=== PATIENT | female | born 1940 | race Caucasian/White ===

== ENCOUNTER → 2017-11-19 | Outpatient (CLI) | payer OTHER ==
[~2017-11-19] MED LIST: AMIT150T PO; HYDR25TA PO; LEVO125T5 PO; METF500T4 PO; TRIA1TAB3 PO
--- NOTE | 2017-11-26 08:51 | RAD ---
DATE: 11/19/2017 EXAM: MAMMO KHLOE SCREENING BILATERAL HISTORY: Screening Mammogram COMPARISON: None available at the time of dictation This study was interpreted with the benefit of Computerized Aided Detection (CAD). The breast parenchyma shows scattered fibroglandular densities. Breast parenchyma level B. FINDINGS: Bilateral digital 2-D and 3-D tomosynthesis CC and MLO views. There is a mass in the upper outer right breast, anterior depth. There is a smaller mass in the inferior right breast at approximately 6:00 position, anterior depth. There is a biopsy clip at the 12:00 position right breast. Multiple benign appearing bilateral calcifications. No suspicious mass, calcification or architectural distortion in the left breast. IMPRESSION: Two right breast masses. Diagnostic right breast mammogram to include spot compression views and same day ultrasound, if needed. BI-RADS CATEGORY: 0 INCOMPLETE: NEEDS ADDITIONAL IMAGING EVALUATION AND/OR PRIOR MAMMOGRAMS FOR COMPARISON. RECOMMENDED FOLLOW-UP: ADD ADDITIONAL IMAGING PQRS compliance statement: Patient information was entered into a reminder system with a target due date for the next mammogram. Mammography is a sensitive method for finding small breast cancers, but it does not detect them all and is not a substitute for careful clinical examination. A negative mammogram does not negate a clinically suspicious finding and should not result in delay in biopsying a clinically suspicious abnormality. "Our facility is accredited by the [employer] Mammography Program."
== END | disposition home or self-care (01) ==
LOC: MAMMO 13:45
PROVIDERS: ATTEND Family Medicine
DX: Z12.31 Encounter for screening mammogram for malignant neoplasm of breast (principal); N63.10 Unspecified lump in the right breast, unspecified quadrant
CPT/HCPCS: 77063; 77067

== ENCOUNTER 2018-02-06 11:00 | Inpatient (IN) | payer OTHER ==
[~2018-02-06] VITALS: Ht 152.4 cm; Wt 68.5 kg
[~2018-02-06 11:00] MED LIST changes: -METF500T4 PO; +METF500T5 PO
--- NOTE | 2018-02-06 12:07 | EKG ---
[address] [address] Test Date: 2018-02-06 Test Time: 12:01:38 Pat Name: JACE KERN Department: Room: Gender: F Mri Special Procedures Technologist: TYLER : 1940 Requested By: JEANNE PIERRE Order Number: [id number] Reading MD: Measurements Intervals [place] Rate: 91 P: -142 CT: 230 QRS: -20 QRSD: 170 T: 113 QT: 420 QTc: 519 Interpretive Statements SUPRAVENTRICULAR RHYTHM PROLONGED CT INTERVAL LEFT ATRIAL ABNORMALITY LEFTWARD AXIS NON SPECIFIC INTRAVENTRICULAR BLOCK ABNORMAL ECG RI6.01 Compared to ECG 11/19/2017 17:13:56 Supraventricular rhythm now present Atrial abnormality now present Sinus rhythm no longer present ST (T wave) deviation no longer present Prolonged QT interval no longer present
--- NOTE | 2018-02-06 12:19 | PHYS DOC ---
Past History Past Medical History: Cancer, Diabetes, Other Additional Past Medical Histor: benign renal tumor Past Surgical History: Other Additional Past Surgical Histo: acoustic neuroma removal Smoking: Non-smoker Alcohol Use: Occasionally Drug Use: None Adult General Chief Complaint Chief Complaint: MECHANICAL FALL HPI HPI Patient is a 77-year-old white female, who is a retired teacher, who presents to the emergency department with 2 friends. She splits her time between [place]/ [place], and this area, when she is here she usually resides with friends. The patient's friends state that the patient has had a gradual decline in cognitive status and increasing confusion over the past several months. The patient's phone, who is on his way here from [place] and whom I spoke with by phone, confirms the above history. The patient did fall twice today and has some minor bruising on her face, but denies any pain or any recent injuries. She is oriented to person and place but disoriented to time. She denies any headache, or vision changes. She has not had any chest pain shortness of breath. She has not had any urinary symptoms. There are no alleviating, or exacerbating factors to her symptoms. The patient does have a local physician, Dr. Schwarz. Review of Systems Review of Systems Constitutional: Denies fever or chills [] Eyes: Denies change in visual acuity, redness, or eye pain [] HENT: Denies nasal congestion or sore throat [] Respiratory: Denies cough or shortness of breath [] Cardiovascular: The patient denies any shortness of breath, chest pain, palpitations, or orthopnea[] GI: Denies abdominal pain, nausea, vomiting, bloody stools or diarrhea [] : Denies dysuria or hematuria [] Musculoskeletal: Denies back pain or joint pain [] Integument: Denies rash or skin lesions [] Neurologic: Denies headache, focal weakness or sensory changes. Has had increasing confusion and falls. [] Endocrine: Denies polyuria or polydipsia [] All other systems were reviewed and found to be within normal limits, except as documented in this note. Allergies Allergies Allergies Coded Allergies Type Severity Reaction Last Updated Verified No Known Drug Allergies 11/23/16 No Physical Exam Physical Exam PHYSICAL EXAM: CONSTITUTIONAL: Well developed, well nourished HEAD: normocephalic, atraumatic EENT: PERRL, EOMI. Conjunctivae normal color, sclerae non-icteric; dry mucous membranes. NECK: Supple, non-tender; no meningismus. LUNGS: Lungs CTA, breathing even and unlabored. Normal air movement. HEART: Regular rate and rhythm, no murmur CHEST: No deformity; non-tender ABDOMEN: The abdomen is soft, and non-tender, no masses or bruits. EXTREM: Normal ROM; no deformity, no calf tenderness. Normal pulses palpable in all extremities. There is no pedal edema. SKIN: No rash; no diaphoresis NEURO: Alert; normal speech . Impaired cognition suggestive of aerx-fm-dlgleaet dementia, CN's grossly intact; strength grossly intact without focal deficit. BACK: No CVA TTP. Current Patient Data Vital Signs Vital Signs Date Time Temp Pulse Resp B/P (MAP) Pulse Ox O2 Delivery O2 Flow Rate FiO2 02/06/18 11:32 98.2 113 22 96 Room Air EKG EKG [Probable normal sinus rhythm at a rate of 91 bpm, left axis deviation, left bundle branch block, with secondary repolarization abnormality without any other acute ischemic ST/T changes.] Radiology/Procedures Radiology/Procedures PROCEDURE: CHEST PA & LATERAL CHEST PA LATERAL, CT HEAD without CONTRAST Clinical indications: SHORT OF BREATH. Dizziness. Weakness. Falling. History of acoustic neuroma. NONCONTRAST HEAD CT COMPARISON: November 19, 2017. Technique: Noncontrast axial cross sectional scanning of the head was performed. PQRS compliance Statement One or more of the following individualized dose reduction techniques were utilized for this study: 1. Automated exposure control 2. Adjustment of the mA and/or kV according to patient size 3. Use of iterative reconstruction technique Findings: A right mastoidectomy is evident with a cochlear implant in place. There is metallic artifact as a result which does obscure portions of the right cerebral hemisphere periphery. There is a small left frontal meningioma which is unchanged. It measures 12 mm. No acute intracranial hemorrhage or midline shift or mass-effect or hydrocephalus or extra-axial fluid collection is seen. No new focal hypodense area or sulci effacement is seen to indicate an acute infarct or edema radiographically. No skull fracture or pneumocephalus is seen. Impression: No new intracranial abnormality is seen. CHEST PA LATERAL, COMPARISON: November 19, 2017. Findings: Calcified granuloma of the left lung base is again noted. No acute lung infiltrate or pleural effusion or pulmonary edema or lung mass or pneumothorax is seen. The heart size, pulmonary vasculature, mediastinum and both scott are unremarkable. The osseous structures appear intact. Impression: No acute radiographic abnormality is seen. Course & Med Decision Making Course & Med Decision Making Pertinent Labs and Imaging studies reviewed. (See chart for details) [] the patient's condition remained stable. Spoke with the patient's PCP, who will admit the patient for further evaluation and treatment. Her renal function is normal at baseline, her creatinine today of 2.0 is new for her. Her hemoglobin is slightly lower than the 10-11 that it has been in the past. Dragon Disclaimer Dragon Disclaimer This electronic medical record was generated, in whole or in part, using a voice recognition dictation system. Departure Departure: Impression: Primary Impression: Acute renal failure Additional Impressions: Dehydration Altered mental status Disposition: ADMITTED INPATIENT Admitting Physician: Rafael Davis Condition: STABLE Referrals: RAFAEL DAVIS MD (PCP) Problem Qualifiers JEANNE PIERRE MD February 06, 2018 12:19
[2018-02-06 12:28] LABS: BASO % 1 % (0-3); EOS # 0.1 x10^3/uL (0.0-0.7); EOS % 3 % (0-3); HEMATOCRIT 27.6 % (36.0-47.0); HEMOGLOBIN 8.8 g/dL (12.0-15.5); LYMPH # 1.2 x10^3/uL (1.0-4.8); LYMPH % 26 % (24-48); MEAN CORPUSCULAR HEMOGLOBIN 22 pg (25-35); MEAN CORPUSCULAR HGB CONC 32 g/dL (31-37); MEAN CORPUSCULAR VOLUME 70 fL (79-100); MONO # 0.4 x10^3/uL (0.0-1.1); MONO % 9 % (0-9); NEUT # 2.8 x10^3uL (1.8-7.7); NEUT % 61 % (31-73); PLATELET COUNT 217 x10^3/uL (140-400); RED BLOOD COUNT 3.97 x10^6/uL (3.50-5.40); RED CELL DISTRIBUTION WIDTH 17.5 % (11.5-14.5); WHITE BLOOD COUNT 4.5 x10^3/uL (4.0-11.0)
[2018-02-06 12:48] LABS: ALBUMIN 3.2 g/dL (3.4-5.0); ALBUMIN/GLOBULIN RATIO 0.8 (1.0-1.7); CALCIUM 8.8 mg/dL (8.5-10.1); GFR 24.2; MAGNESIUM 1.8 mg/dL (1.8-2.4); POTASSIUM 4.1 mmol/L (3.5-5.1); TOTAL BILIRUBIN 0.4 mg/dL (0.2-1.0); TOTAL PROTEIN 7.2 g/dL (6.4-8.2)
--- NOTE | 2018-02-06 12:50 | RAD ---
CHEST PA LATERAL, CT HEAD without CONTRAST Clinical indications: SHORT OF BREATH. Dizziness. Weakness. Falling. History of acoustic neuroma. NONCONTRAST HEAD CT COMPARISON: November 19, 2017. Technique: Noncontrast axial cross sectional scanning of the head was performed. RS compliance Statement One or more of the following individualized dose reduction techniques were utilized for this study: 1. Automated exposure control 2. Adjustment of the mA and/or kV according to patient size 3. Use of iterative reconstruction technique Findings: A right mastoidectomy is evident with a cochlear implant in place. There is metallic artifact as a result which does obscure portions of the right cerebral hemisphere periphery. There is a small left frontal meningioma which is unchanged. It measures 12 mm. No acute intracranial hemorrhage or midline shift or mass-effect or hydrocephalus or extra-axial fluid collection is seen. No new focal hypodense area or sulci effacement is seen to indicate an acute infarct or edema radiographically. No skull fracture or pneumocephalus is seen. Impression: No new intracranial abnormality is seen. CHEST PA LATERAL, COMPARISON: November 19, 2017. Findings: Calcified granuloma of the left lung base is again noted. No acute lung infiltrate or pleural effusion or pulmonary edema or lung mass or pneumothorax is seen. The heart size, pulmonary vasculature, mediastinum and both scott are unremarkable. The osseous structures appear intact. Impression: No acute radiographic abnormality is seen. Electronically signed by: Jarret Medina MD (02/06/2018 12:46 PM) [id number]
[2018-02-06 13:14] LABS: BACTERIA,URINE FEW /HPF (0-FEW); BILIRUBIN,URINE NEG (NEG); CLARITY,URINE CLOUDY; COLOR,URINE AMBER; GLUCOSE,URINE NEG (NEG); NITRITE,URINE NEG (NEG); RBC,URINE 0 /HPF (0-2); SQUAMOUS EPITHELIAL CELL,UR FEW /LPF; UROBILINOGEN,URINE 0.2 mg/dL (0.2 mg/dL)
[2018-02-06] MEDS ORDERED: IV NORMAL SALINE 1,000ML 1,000 ML IV ONE ×2 (13:15)
[2018-02-06 13:18] LABS: BARBITURATES NEG (NEG); BENZODIAZEPINES NEG (NEG); CANNABINOIDS NEG (NEG); COCAINE NEG (NEG); METHADONE NEG (NEG); OPIATES NEG (NEG); PHENCYCLIDINE NEG (NEG)
[2018-02-06 13:19] LABS: AMPHETAMINE/METHAMPHETAMINE NEG (NEG)
[2018-02-06 13:21] LABS: PLT ESTIMATE ADEQUATE (ADEQUATE)
[2018-02-06 13:22] LABS: HYPOCHROMIA SLIGHT; MICROCYTOSIS MOD; POLYCHROMASIA SLIGHT
[2018-02-06 13:23] LABS: ANISOCYTOSIS SLIGHT
[2018-02-06 13:24] LABS: OVALOCYTES OCC
[2018-02-06] MEDS ORDERED: POTASSIUM CL 20MEQ D5-0.2%NACL 1,000 ML IV ONE (13:30)
[2018-02-06 16:55] VITALS: BP 121/76
[2018-02-06 16:56] VITALS: BP 110/76
[2018-02-06 16:57] VITALS: BP 103/70
[2018-02-06] MEDS ORDERED: SULF-143 PO (17:05)
[2018-02-06] MEDS ORDERED: BUDE10.2 IH (17:05)
[2018-02-06] MEDS ORDERED: GLIP5TAB10 PO (17:05)
[2018-02-06] MEDS ORDERED: CODE1CAP24 PO (17:05)
[2018-02-06] MEDS ORDERED: INSU100I17 SQ (17:12)
[2018-02-06] MEDS ORDERED: DEXTROSE 50% 25 GM / 50ML DISP.SYRIN. IV PRN (18:15)
[2018-02-06] MEDS ORDERED: LIDOCAINE (700MG/PATCH) PATCH. TD SCH ×2 (18:30→21:00)
--- NOTE | 2018-02-06 18:35 | HP ---
ADMIT DATE: 02/06/2018 HISTORY OF PRESENT ILLNESS: The patient is a 77-year-old female came in through the Emergency Room. Retired teacher. The patient notes that she has been becoming more confused. The patient has been spending her time in [place] in [facility]. The patient's decline in cognitive status, increased confusion over the past several months. The patient fell twice today and has some minor bruising to the face, but denies any pain or recent injury. She is oriented to person and place, but disoriented, otherwise. She denies any chest pain, shortness of breath or urinary symptoms. The patient was admitted for further evaluation of acute on top of chronic change in mental status. The patient has no known allergies. REVIEW OF SYSTEMS: Basically, she denies most everything. She has poor mentation. She has had previous concussions to the head as well. MEDICATIONS: Include trimethoprim, sulfa, Fioricet, Elavil 150 mg at bedtime, hydroxyzine 25 mg, budesonide, metformin, glipizide 5 mg, levothyroxine 1 tablet daily. ALLERGIES: No known drug allergies. FAMILY HISTORY: Unremarkable. SOCIAL HISTORY: No smoking, alcohol or drug use. Full code. PHYSICAL EXAMINATION: GENERAL: White female in moderate amount of distress, looking fairly uncomfortable. VITAL SIGNS: Blood pressure 125/50, respiratory 20, pulse 85, afebrile, oxygen saturation good. HEENT: Atraumatic, normocephalic. Eyes: PERRLA without jaundice. Mouth and throat were normal. NECK: Supple, without JVD, carotid bruits. No thyromegaly. LUNGS: Diminished, but clear. CARDIOVASCULAR: Regular sinus rhythm, S1, S2, without murmur, rub, thrill, or extra heart sounds. ABDOMEN: Soft, nontender, no rebound or guarding. Positive bowel sounds, no hepatosplenomegaly noted. EXTREMITIES: No clubbing, cyanosis, or edema. NEUROLOGIC: The patient is alert, but unable to give much in the way of short-term memory, carry on a conversation. LABORATORY DATA: Creatinine is elevated. IMPRESSION: Chronic kidney disease. Blood sugar 239, moderate protein malnutrition, change in mental status, syncopal spells as well as mild concussion, and mild dementia. PLAN: Continue workup as such. MILAN KAPLAN MD DR: Ancelmo JOB#: [id number] / [id number]
[2018-02-06 19:00] VITALS: BP 114/70
[2018-02-06] MEDS: ALBUTEROL SULFATE 2.5 MG/3 ML NEBU. NEB SCH (20:21)
[2018-02-06] MEDS: BUDESONIDE 0.5 MG/2 ML NEBU NEB SCH (20:21)
[2018-02-06] MEDS: ACETAMINOPHEN 325 MG TABLET PO PRN (20:36)
[2018-02-06] MEDS: AMITRIPTYLINE HCL 75 MG TABLET PO SCH (20:36)
[2018-02-06] MEDS ORDERED: AMITRIPTYLINE HCL 75 MG TABLET PO SCH (21:00)
[2018-02-06] MEDS ORDERED: NON FORMULARY ITEM (Budesonide/Formoterol Fumarate (Symbicort 160-4.5 Mcg Inhaler) 2 PUFF) IH SCH (21:00)
[2018-02-06 23:29] VITALS: BP 111/60
[2018-02-07 05:50] VITALS: BP 125/72
[2018-02-07 06:01] LABS: BASO % 1 % (0-3); EOS # 0.2 x10^3/uL (0.0-0.7); EOS % 5 % (0-3); HEMATOCRIT 24.7 % (36.0-47.0); HEMOGLOBIN 7.9 g/dL (12.0-15.5); LYMPH # 1.5 x10^3/uL (1.0-4.8); LYMPH % 41 % (24-48); MEAN CORPUSCULAR HEMOGLOBIN 22 pg (25-35); MEAN CORPUSCULAR HGB CONC 32 g/dL (31-37); MEAN CORPUSCULAR VOLUME 69 fL (79-100); MONO # 0.4 x10^3/uL (0.0-1.1); MONO % 10 % (0-9); NEUT # 1.7 x10^3uL (1.8-7.7); NEUT % 44 % (31-73); PLATELET COUNT 174 x10^3/uL (140-400); RED BLOOD COUNT 3.58 x10^6/uL (3.50-5.40); WHITE BLOOD COUNT 3.8 x10^3/uL (4.0-11.0)
[2018-02-07 06:09] LABS: CALCIUM 8.4 mg/dL (8.5-10.1); CREATININE 1.1 mg/dL (0.6-1.0); GFR 48.3; POTASSIUM 3.8 mmol/L (3.5-5.1)
[2018-02-07] MEDS: ALBUTEROL SULFATE 2.5 MG/3 ML NEBU. NEB SCH ×4 (06:17→20:14)
[2018-02-07] MEDS: LEVOTHYROXINE 125 MCG TABLET PO SCH (06:23)
[2018-02-07] MEDS ORDERED: INSULIN LISPRO 300 UNITS/3 ML INSULN.PEN. SQ SCH (07:30)
[2018-02-07] MEDS ORDERED: INSULIN ASPART 300 UNITS/3 ML INSULN.PEN SQ SCH (07:30)
[2018-02-07] MEDS ORDERED: PATCH REMOVAL. MC SCH (09:00)
[2018-02-07] MEDS: glipiZIDE 5 MG TABLET PO SCH (09:56)
[2018-02-07] MEDS: metFORMIN 500 MG TABLET PO SCH ×2 (09:56→17:52)
[2018-02-07] MEDS: INSULIN ASPART 300 UNITS/3 ML INSULN.PEN SQ SCH ×3 (10:31→17:54)
[2018-02-07 11:00] VITALS: BP 111/72
[2018-02-07] MEDS: BUDESONIDE 0.5 MG/2 ML NEBU NEB SCH ×2 (11:17→20:14)
[2018-02-07] MEDS: ACETAMINOPHEN 325 MG TABLET PO PRN ×2 (13:44→20:00)
[2018-02-07 15:00] VITALS: BP 101/68
[2018-02-07 19:33] VITALS: BP 112/66
[2018-02-07] MEDS: LIDOCAINE (700MG/PATCH) PATCH. TD SCH (20:00)
[2018-02-07] MEDS: AMITRIPTYLINE HCL 75 MG TABLET PO SCH (20:00)
[2018-02-07 22:46] VITALS: BP 93/55
[2018-02-08 01:08] LABS: HEMOGLOBIN A1C 8.7 % (4.8-5.6)
[2018-02-08] MEDS: ACETAMINOPHEN 325 MG TABLET PO PRN ×2 (01:29→06:32)
[2018-02-08] MEDS: LEVOTHYROXINE 125 MCG TABLET PO SCH (05:26)
[2018-02-08] MEDS: ALBUTEROL SULFATE 2.5 MG/3 ML NEBU. NEB SCH ×4 (05:28→21:08)
[2018-02-08 05:46] LABS: BASO % 1 % (0-3); EOS # 0.1 x10^3/uL (0.0-0.7); EOS % 4 % (0-3); HEMATOCRIT 26.6 % (36.0-47.0); HEMOGLOBIN 8.5 g/dL (12.0-15.5); LYMPH # 1.6 x10^3/uL (1.0-4.8); LYMPH % 39 % (24-48); MEAN CORPUSCULAR HEMOGLOBIN 22 pg (25-35); MEAN CORPUSCULAR HGB CONC 32 g/dL (31-37); MEAN CORPUSCULAR VOLUME 69 fL (79-100); MONO # 0.4 x10^3/uL (0.0-1.1); MONO % 11 % (0-9); NEUT # 1.9 x10^3uL (1.8-7.7); NEUT % 46 % (31-73); PLATELET COUNT 179 x10^3/uL (140-400); RED BLOOD COUNT 3.87 x10^6/uL (3.50-5.40); RED CELL DISTRIBUTION WIDTH 17.1 % (11.5-14.5); WHITE BLOOD COUNT 4.1 x10^3/uL (4.0-11.0)
[2018-02-08 05:50] VITALS: BP 137/67
[2018-02-08 05:54] LABS: CALCIUM 8.6 mg/dL (8.5-10.1); CREATININE 0.9 mg/dL (0.6-1.0); GFR 60.9; POTASSIUM 3.9 mmol/L (3.5-5.1)
[2018-02-08 06:09] LABS: FECAL OB PT POSITIVE (NEG)
[2018-02-08] MEDS: metFORMIN 500 MG TABLET PO SCH ×2 (08:30→17:16)
[2018-02-08] MEDS: glipiZIDE 5 MG TABLET PO SCH (08:30)
[2018-02-08] MEDS: INSULIN ASPART 300 UNITS/3 ML INSULN.PEN SQ SCH ×3 (08:32→17:18)
[2018-02-08] MEDS: PATCH REMOVAL. MC SCH (09:00)
[2018-02-08 11:00] VITALS: BP 95/62
[2018-02-08] MEDS: BUDESONIDE 0.5 MG/2 ML NEBU NEB SCH ×2 (11:24→21:08)
[2018-02-08] MEDS: buPROPion SR 150 MG TABLET.SA PO SCH (12:31)
[2018-02-08 15:45] VITALS: BP 108/56
[2018-02-08 19:15] VITALS: BP 114/73
--- NOTE | 2018-02-08 19:56 | PDOC ---
Exam Note: [place]ney Note: Please also refer to the separate dictated note~for this date of service dictated separately.~Patient seen individually. Discussed the patient with Nursing staff reviewed the chart.~Reviewed interim history and current functioning. Reviewed vital signs,~Labs/ Radiology~and current medications noted below. Continue current treatment with the changes noted in the dictated addendum note. This is a late entry for February 07, 2018 Assessment: Vital Signs: VS - Last 72 Hours, by Label Date Time Temp Pulse Resp B/P (MAP) Pulse Ox O2 Delivery O2 Flow Rate FiO2 02/08/18 16:32 96 Room Air 02/08/18 15:45 98.3 93 18 108/56 (73) 93 Room Air 02/08/18 11:31 96 Room Air 02/08/18 11:26 96 Room Air 02/08/18 11:00 98.3 97 95/62 (73) 99 02/08/18 08:00 Room Air 02/08/18 05:50 97.8 90 18 137/67 (90) 97 Room Air 02/08/18 05:30 96 Room Air 02/07/18 22:46 57 16 93/55 (68) 96 Room Air 02/07/18 20:23 Room Air 02/07/18 20:18 Room Air 02/07/18 20:15 98 Room Air 02/07/18 19:33 98.5 108 16 112/66 (81) 97 Room Air 02/07/18 16:25 96 Room Air 02/07/18 15:00 98.5 96 101/68 (79) 89 Room Air 02/07/18 11:27 97 Room Air 02/07/18 11:19 97 Room Air 02/07/18 11:00 98.5 63 111/72 (85) 97 02/07/18 08:00 Room Air 02/07/18 06:19 96 Room Air 02/07/18 05:50 98.1 86 14 125/72 (89) 91 Room Air 02/06/18 23:29 98.4 90 20 111/60 (77) 95 Room Air 02/06/18 20:28 Room Air 02/06/18 20:25 96 Room Air 02/06/18 20:15 Room Air 02/06/18 19:00 98.0 56 18 114/70 (85) 92 Room Air 02/06/18 17:23 Room Air 02/06/18 16:57 93 103/70 (81) 02/06/18 16:56 94 110/76 (87) 02/06/18 16:55 91 121/76 (91) 02/06/18 16:54 97.7 18 97 Room Air 02/06/18 15:47 85 20 125/53 (77) 96 Room Air 02/06/18 11:32 98.2 113 22 96 Room Air Vital Signs Date Time Temp Pulse Resp B/P (MAP) Pulse Ox O2 Delivery O2 Flow Rate FiO2 02/08/18 16:32 96 Room Air 02/08/18 15:45 98.3 93 18 108/56 (73) I&O Intake and Output 02/08/18 07:00 Intake Total 570 ml Output Total 1400 ml Balance -830 ml Intake Oral 570 ml Output Urine Total 1400 ml Labs: Laboratory Tests Test 02/08/18 05:20 02/08/18 05:30 02/08/18 07:33 02/08/18 12:08 White Blood Count 4.1 x10^3/uL (4.0-11.0) Red Blood Count 3.87 x10^6/uL (3.50-5.40) Hemoglobin 8.5 g/dL (12.0-15.5) L Hematocrit 26.6 % (36.0-47.0) L Mean Corpuscular Volume 69 fL (79-100) L Mean Corpuscular Hemoglobin 22 pg (25-35) L Mean Corpuscular Hemoglobin Concent 32 g/dL (31-37) Red Cell Distribution Width 17.1 % (11.5-14.5) H Platelet Count 179 x10^3/uL (140-400) Neutrophils (%) (Auto) 46 % (31-73) Lymphocytes (%) (Auto) 39 % (24-48) Monocytes (%) (Auto) 11 % (0-9) H Eosinophils (%) (Auto) 4 % (0-3) H Basophils (%) (Auto) 1 % (0-3) Neutrophils # (Auto) 1.9 x10^3uL (1.8-7.7) Lymphocytes # (Auto) 1.6 x10^3/uL (1.0-4.8) Monocytes # (Auto) 0.4 x10^3/uL (0.0-1.1) Eosinophils # (Auto) 0.1 x10^3/uL (0.0-0.7) Basophils # (Auto) 0.0 x10^3/uL (0.0-0.2) Sodium Level 137 mmol/L (136-145) Potassium Level 3.9 mmol/L (3.5-5.1) Chloride Level 99 mmol/L (98-107) Carbon Dioxide Level 25 mmol/L (21-32) Anion Gap 13 (6-14) Blood Urea Nitrogen 15 mg/dL (7-20) Creatinine 0.9 mg/dL (0.6-1.0) Estimated GFR (Cockcroft-Gault) 60.9 Glucose Level 178 mg/dL (70-99) H Calcium Level 8.6 mg/dL (8.5-10.1) Stool Occult Blood Positive (NEG) Glucose (Fingerstick) 174 mg/dL (70-99) H 178 mg/dL (70-99) H Test 02/08/18 16:48 Glucose (Fingerstick) 150 mg/dL (70-99) H Current Medications: Meds: Current Medications Sodium Chloride 1,000 ml @ 125 mls/hr 1X ONCE IV Last administered on at 13:31; Start 02/06/18 at 13:15; Stop 02/06/18 at 21:14; Status DC Sodium Chloride 1,000 ml @ 1,000 mls/hr 1X ONCE IV ; Start 02/06/18 at 13:15; Stop 02/06/18 at 14:14; Status DC Potassium Chloride/Dextrose/ Sod Cl 1,000 ml @ 125 mls/hr 1X ONCE IV Last administered on 02/06/18at 14:28; Start 02/06/18 at 13:30; Stop 02/06/18 at 21:29 ; Status DC Insulin Aspart (NovoLOG) 10 units TIDAC SQ ; Start 02/07/18 at 07:30; Stop 02/07 at 08:56; Status DC Non-Formulary Medication (Budesonide/ Formoterol Fumarate (Symbicort 160-4.5 Mcg Inhaler)) 2 puff BID IH ; Start 02/06/18 at 21:00; Stop 02/06/18 at 21:00; Status DC Glipizide (Glucotrol) 5 mg DAILY PO Last administered on 02/08/18at 08:30; Start 02/07/18 at 09:00 Levothyroxine Sodium (Synthroid) 125 mcg DAILY07 PO Last administered on at 05:26; Start 02/07/18 at 07:00; Stop 02/08/18 at 10:30; Status DC Metformin HCl (Glucophage) 1,000 mg BIDWMEALS PO Last administered on at 17:16; Start 02/07/18 at 08:00 Amitriptyline HCl (Elavil) 75 mg QHS PO ; Start 02/06/18 at 21:00; Status UNV Acetaminophen (Tylenol) 650 mg PRN Q6HRS PRN PO PAIN / TEMP Last administered on 02/08/18at 06:32; Start 02/06/18 at 18:15 Dextrose 12.5 gm PRN Q15MIN PRN IV SEE COMMENTS; Start 02/06/18 at 18:15 Lidocaine (Lidoderm) 1 patch DAILY TD ; Start 02/06/18 at 18:30; Stop 02/06/18 at 19:26; Status DC Miscellaneous (Lidoderm Patch Removal) 1 ea QHS MC Last administered on at 09:00; Start 02/07/18 at 09:00; Stop 02/07/18 at 13:23; Status DC Albuterol Sulfate (Ventolin) 2.5 mg RTQID NEB Last administered on 02/08/18at 16 :31; Start 02/06/18 at 20:00 Budesonide (Pulmicort) 0.5 mg RTBID NEB Last administered on 02/08/18at 11:24; Start 02/06/18 at 20:00 Lidocaine (Lidoderm) 1 patch DAILY TD Last administered on 02/06/18at 20:36; Start 02/06/18 at 21:00; Stop 02/07/18 at 13:22; Status DC Amitriptyline HCl (Elavil) 75 mg QHS PO Last administered on 02/07/18at 20:00; Start 02/06/18 at 21:00 Insulin Human Lispro (HumaLOG) 10 units TIDAC SQ ; Start 02/07/18 at 07:30; Status Cancel Insulin Aspart (NovoLOG) 10 units TIDAC SQ Last administered on 02/08/18at 17:18 ; Start 02/07/18 at 07:30 Lidocaine (Lidoderm) 1 patch QHS TD Last administered on 02/07/18at 20:00; Start 02/07/18 at 21:00 Miscellaneous (Lidoderm Patch Removal) 1 ea DAILY MC Last administered on at 09:00; Start 02/08/18 at 09:00 Levothyroxine Sodium (Synthroid) 175 mcg DAILY07 PO ; Start 02/09/18 at 07:00 Ferrous Sulfate (Feosol) 325 mg DAILYWBKFT PO ; Start 02/09/18 at 08:00 Bupropion HCl (Wellbutrin Sr) 150 mg DAILY PO Last administered on 02/08/18at 12 :31; Start 02/08/18 at 10:30 Active Scripts Active Metformin Hcl 500 Mg Tablet 1,000 Mg PO BIDWMEALS 30 Days LAST DOSE GIVEN: DATE: TIME: NEXT DOSE DUE: DATE: TIME: Reported Novolog Flexpen (Insulin Aspart) 100 Unit/1 Ml Insuln.pen 10 Unit SQ TIDAC Sse-Fopuhx-Elgb-Cod #3 Capsule (Codeine/Butalbital/Asa/Caffein) 1 Each Capsule 1 Each PO PRN PRN Symbicort 160-4.5 Mcg Inhaler (Budesonide/Formoterol Fumarate) 10.2 Gm Hfa.aer.ad 2 Puff IH BID Glipizide 5 Mg Tablet 1 Tab PO DAILY Levothyroxine Sodium 125 Mcg Tablet 1 Tab PO DAILY LAST DOSE GIVEN: DATE: TODAY TIME: BEFORE BREAKFAST NEXT DOSE DUE: DATE: TOMORROW TIME: BEFORE BREAKFAST Hydroxyzine Hcl 25 Mg Tablet 25 Mg PO QID LAST DOSE GIVEN: DATE: TODAY TIME: 1:30 NEXT DOSE DUE: DATE: TODAY TIME: 6 PM Amitriptyline Hcl 150 Mg Tablet 1 Tab PO QHS LAST DOSE GIVEN: DATE: YESTERDAY TIME: AT BEDTIME NEXT DOSE DUE: DATE: TODAY TIME: AT BEDTIME I have reviewed the current psychotropics carefully including drug interactions. Risk benefit ratio favors no change other than as noted in my dictated progress note. Diagnosis: Problems: (1) Anxiety disorder (2) Mild cognitive disorder (3) Altered mental status MAURO LIVE MD February 08, 2018 19:56
--- NOTE | 2018-02-08 20:06 | PDOC ---
Exam Note: [place]ney Note: Please also refer to the separate dictated note~for this date of service dictated separately.~Patient seen individually. Discussed the patient with Nursing staff reviewed the chart.~Reviewed interim history and current functioning. Reviewed vital signs,~Labs/ Radiology~and current medications noted below. Continue current treatment with the changes noted in the dictated addendum note Assessment: Vital Signs: Vital Signs Date Time Temp Pulse Resp B/P (MAP) Pulse Ox O2 Delivery O2 Flow Rate FiO2 02/08/18 16:32 96 Room Air 02/08/18 15:45 98.3 93 18 108/56 (73) I&O Intake and Output 02/08/18 07:00 Intake Total 570 ml Output Total 1400 ml Balance -830 ml Intake Oral 570 ml Output Urine Total 1400 ml Labs: Laboratory Tests Test 02/08/18 05:20 02/08/18 05:30 02/08/18 07:33 02/08/18 12:08 White Blood Count 4.1 x10^3/uL (4.0-11.0) Red Blood Count 3.87 x10^6/uL (3.50-5.40) Hemoglobin 8.5 g/dL (12.0-15.5) L Hematocrit 26.6 % (36.0-47.0) L Mean Corpuscular Volume 69 fL (79-100) L Mean Corpuscular Hemoglobin 22 pg (25-35) L Mean Corpuscular Hemoglobin Concent 32 g/dL (31-37) Red Cell Distribution Width 17.1 % (11.5-14.5) H Platelet Count 179 x10^3/uL (140-400) Neutrophils (%) (Auto) 46 % (31-73) Lymphocytes (%) (Auto) 39 % (24-48) Monocytes (%) (Auto) 11 % (0-9) H Eosinophils (%) (Auto) 4 % (0-3) H Basophils (%) (Auto) 1 % (0-3) Neutrophils # (Auto) 1.9 x10^3uL (1.8-7.7) Lymphocytes # (Auto) 1.6 x10^3/uL (1.0-4.8) Monocytes # (Auto) 0.4 x10^3/uL (0.0-1.1) Eosinophils # (Auto) 0.1 x10^3/uL (0.0-0.7) Basophils # (Auto) 0.0 x10^3/uL (0.0-0.2) Sodium Level 137 mmol/L (136-145) Potassium Level 3.9 mmol/L (3.5-5.1) Chloride Level 99 mmol/L (98-107) Carbon Dioxide Level 25 mmol/L (21-32) Anion Gap 13 (6-14) Blood Urea Nitrogen 15 mg/dL (7-20) Creatinine 0.9 mg/dL (0.6-1.0) Estimated GFR (Cockcroft-Gault) 60.9 Glucose Level 178 mg/dL (70-99) H Calcium Level 8.6 mg/dL (8.5-10.1) Stool Occult Blood Positive (NEG) Glucose (Fingerstick) 174 mg/dL (70-99) H 178 mg/dL (70-99) H Test 02/08/18 16:48 Glucose (Fingerstick) 150 mg/dL (70-99) H Current Medications: Meds: Current Medications Sodium Chloride 1,000 ml @ 125 mls/hr 1X ONCE IV Last administered on at 13:31; Start 02/06/18 at 13:15; Stop 02/06/18 at 21:14; Status DC Sodium Chloride 1,000 ml @ 1,000 mls/hr 1X ONCE IV ; Start 02/06/18 at 13:15; Stop 02/06/18 at 14:14; Status DC Potassium Chloride/Dextrose/ Sod Cl 1,000 ml @ 125 mls/hr 1X ONCE IV Last administered on 02/06/18at 14:28; Start 02/06/18 at 13:30; Stop 02/06/18 at 21:29 ; Status DC Insulin Aspart (NovoLOG) 10 units TIDAC SQ ; Start 02/07/18 at 07:30; Stop 02/07 at 08:56; Status DC Non-Formulary Medication (Budesonide/ Formoterol Fumarate (Symbicort 160-4.5 Mcg Inhaler)) 2 puff BID IH ; Start 02/06/18 at 21:00; Stop 02/06/18 at 21:00; Status DC Glipizide (Glucotrol) 5 mg DAILY PO Last administered on 02/08/18 08:30; Start 02/07/18 at 09:00 Levothyroxine Sodium (Synthroid) 125 mcg DAILY07 PO Last administered on 05:26; Start 02/07/18 at 07:00; Stop 02/08/18 at 10:30; Status DC Metformin HCl (Glucophage) 1,000 mg BIDWMEALS PO Last administered on 17:16; Start 02/07/18 at 08:00 Amitriptyline HCl (Elavil) 75 mg QHS PO ; Start 02/06/18 at 21:00; Status UNV Acetaminophen (Tylenol) 650 mg PRN Q6HRS PRN PO PAIN / TEMP Last administered on 02/08/18at 06:32; Start 02/06/18 at 18:15 Dextrose 12.5 gm PRN Q15MIN PRN IV SEE COMMENTS; Start 02/06/18 at 18:15 Lidocaine (Lidoderm) 1 patch DAILY TD ; Start 02/06/18 at 18:30; Stop 02/06/18 at 19:26; Status DC Miscellaneous (Lidoderm Patch Removal) 1 ea QHS MC Last administered on at 09:00; Start 02/07/18 at 09:00; Stop 02/07/18 at 13:23; Status DC Albuterol Sulfate (Ventolin) 2.5 mg RTQID NEB Last administered on 02/08/18at 16 :31; Start 02/06/18 at 20:00 Budesonide (Pulmicort) 0.5 mg RTBID NEB Last administered on 02/08/18at 11:24; Start 02/06/18 at 20:00 Lidocaine (Lidoderm) 1 patch DAILY TD Last administered on 02/06/18at 20:36; Start 02/06/18 at 21:00; Stop 02/07/18 at 13:22; Status DC Amitriptyline HCl (Elavil) 75 mg QHS PO Last administered on 02/07/18at 20:00; Start 02/06/18 at 21:00 Insulin Human Lispro (HumaLOG) 10 units TIDAC SQ ; Start 02/07/18 at 07:30; Status Cancel Insulin Aspart (NovoLOG) 10 units TIDAC SQ Last administered on 02/08/18at 17:18 ; Start 02/07/18 at 07:30 Lidocaine (Lidoderm) 1 patch QHS TD Last administered on 02/07/18at 20:00; Start 02/07/18 at 21:00 Miscellaneous (Lidoderm Patch Removal) 1 ea DAILY MC Last administered on at 09:00; Start 02/08/18 at 09:00 Levothyroxine Sodium (Synthroid) 175 mcg DAILY07 PO ; Start 02/09/18 at 07:00 Ferrous Sulfate (Feosol) 325 mg DAILYWBKFT PO ; Start 02/09/18 at 08:00 Bupropion HCl (Wellbutrin Sr) 150 mg DAILY PO Last administered on 02/08/18at 12 :31; Start 02/08/18 at 10:30 Active Scripts Active Metformin Hcl 500 Mg Tablet 1,000 Mg PO BIDWMEALS 30 Days LAST DOSE GIVEN: DATE: TIME: NEXT DOSE DUE: DATE: TIME: Reported Novolog Flexpen (Insulin Aspart) 100 Unit/1 Ml Insuln.pen 10 Unit SQ TIDAC Buh-Mpaynk-Pqfo-Cod #3 Capsule (Codeine/Butalbital/Asa/Caffein) 1 Each Capsule 1 Each PO PRN PRN Symbicort 160-4.5 Mcg Inhaler (Budesonide/Formoterol Fumarate) 10.2 Gm Hfa.aer.ad 2 Puff IH BID Glipizide 5 Mg Tablet 1 Tab PO DAILY Levothyroxine Sodium 125 Mcg Tablet 1 Tab PO DAILY LAST DOSE GIVEN: DATE: TODAY TIME: BEFORE BREAKFAST NEXT DOSE DUE: DATE: TOMORROW TIME: BEFORE BREAKFAST Hydroxyzine Hcl 25 Mg Tablet 25 Mg PO QID LAST DOSE GIVEN: DATE: TODAY TIME: 1:30 NEXT DOSE DUE: DATE: TODAY TIME: 6 PM Amitriptyline Hcl 150 Mg Tablet 1 Tab PO QHS LAST DOSE GIVEN: DATE: YESTERDAY TIME: AT BEDTIME NEXT DOSE DUE: DATE: TODAY TIME: AT BEDTIME I have reviewed the current psychotropics carefully including drug interactions. Risk benefit ratio favors no change other than as noted in my dictated progress note. Diagnosis: Problems: (1) Mild cognitive disorder (2) Anxiety disorder (3) Altered mental status MAURO LIVE MD February 08, 2018 20:06
[2018-02-08] MEDS: AMITRIPTYLINE HCL 75 MG TABLET PO SCH (21:14)
[2018-02-08] MEDS: LIDOCAINE (700MG/PATCH) PATCH. TD SCH (21:15)
[2018-02-09] MEDS: ACETAMINOPHEN 325 MG TABLET PO PRN (00:13)
[2018-02-09] MEDS: ALBUTEROL SULFATE 2.5 MG/3 ML NEBU. NEB SCH ×2 (06:11→10:24)
--- NOTE | 2018-02-09 06:13 | PN ---
DATE: SUBJECTIVE: A 77-year-old female in with acute mental status changes, possible even some encephalopathy; however, the patient is making very good progress. All we have done is cut down on some of her medications and she continues to make good progress overall. She has still been weak and walking and needs help with the physical therapy. The patient also has been started on Wellbutrin as well as increasing her thyroid medication. The patient is otherwise says she is feeling much better. The patient is alert and oriented. PHYSICAL EXAMINATION: VITAL SIGNS: Blood pressure 110/60, respiration 18, pulse 93, and afebrile. GENERAL: The patient is alert and oriented x 3. Speech is fluent, spontaneous, appropriate. LUNGS: Diminished. The patient is still a bit weak on walking, but otherwise markedly improved. IMPRESSION: Therefore of chronic kidney disease, acute mental status change, type 2 diabetes, moderate protein malnutrition, syncopal spells ____ possible mild concussion with mild dementia. MILAN KAPLAN MD DR: JOE/lesia JOB#: [id number] / [id number]
[2018-02-09 06:15] VITALS: BP 94/62
[2018-02-09] MEDS ORDERED: LEVOTHYROXINE 175 MCG TABLET PO SCH (07:00)
[2018-02-09] MEDS: INSULIN ASPART 300 UNITS/3 ML INSULN.PEN SQ SCH (07:30)
--- NOTE | 2018-02-09 07:42 | CONS ---
DATE OF CONSULTATION: 02/07/2018 PSYCHIATRIC CONSULTATION This late entry for 02/07/2018, covers elements not covered in my initial note of 02/07/2018 I met with the patient evening of 02/07/2018 for this consultation. Discussed with nursing staff, reviewed the chart. IDENTIFYING DATA: The patient is a 77-year-old female seen in bed [address] [facility] for a psychiatric consult requested by Dr. Davis on account of the patient's increasing confusion and frequent falls. CHIEF COMPLAINT: "Everyone forgets once in a while. I am no different." Reportedly, the patient's family has had increasing concerns about her forgetfulness, which the patient minimizes. 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 Reportedly, she has been spending her time in the [place] area and has been increasingly confused over the past several months. She has had 2 falls on the day of admission, some minor bruising to the face. Denies any recent injury. She denies being depressed. Sleep and appetite are fair. No suicidal or homicidal ideation. No symptoms of bipolar disorder. PAST PSYCHIATRIC HISTORY: As above with cognitive deficits, short term memory deficits, all of which the patient minimizes. PAST MEDICAL HISTORY: Chronic kidney disease, elevated blood sugars and moderate protein malnutrition. Hypothyroidism, diabetes mellitus, chronic pain. DRUG ALLERGIES: Negative. FAMILY HISTORY: Noncontributory. SOCIAL HISTORY: No alcohol or drug abuse history is noted. She is a retired teacher, lives by herself, still drives from the [facility] to [facility] close to [place] on a regular basis. However as noted below when I questioned her about the various interstate highway, she was quite confused and felt [place] [address] [place] to [place], [place] [address], quite clearly confused on the major route she travels. MENTAL STATUS EXAM: The patient was seen in her room. Eye contact is good. Psychomotor activity normal to somewhat increased. She is somewhat anxious. Speech is coherent, rapid at times. Abstraction fair, computation somewhat impaired, short term memory has some confusion and she was aware of the name of the president, the year, month, unsure about the date. No suicidal or homicidal ideation. IMPRESSION: Mild cognitive impairment versus there is a small left frontal meningioma which is unchanged. No acute infarct, no new intracranial abnormalities seen. PLAN: It appears some of the patient's confusion and memory deficits are consequent to the vascular changes rather than Alzheimer's. I have suggested to the patient that she should not be driving, at least not for the long trips to [facility]. She minimizes this. So far I have not been made aware of any hazards at home with respect to her cookers or other safety elements, but this would have to be reassessed by the family. Dr. Davis, thank you for the opportunity to participate in your patient's care. We will follow with you. MAN Jabari LIVE MD DR: MARCIAL/lesia JOB#: [id number] / [id number]
[2018-02-09] MEDS ORDERED: FERROUS SULFATE 325 MG TABLET. PO SCH (08:00)
[2018-02-09] MEDS: buPROPion SR 150 MG TABLET.SA PO SCH (08:14)
[2018-02-09] MEDS: metFORMIN 500 MG TABLET PO SCH (08:14)
[2018-02-09] MEDS: glipiZIDE 5 MG TABLET PO SCH (08:14)
[2018-02-09] MEDS: PATCH REMOVAL. MC SCH (08:15)
[2018-02-09] MEDS: BUDESONIDE 0.5 MG/2 ML NEBU NEB SCH (10:24)
[2018-02-09 10:52] VITALS: BP 108/72
[2018-02-09] MEDS ORDERED: BUPR150T11 PO (10:53)
[2018-02-09] MEDS ORDERED: ALBU2.5V5 NEB (10:53)
[2018-02-09] MEDS ORDERED: AMPI500C2 PO (10:53)
[2018-02-09] MEDS ORDERED: LEVO175T2 PO (10:53)
[2018-02-09] MEDS ORDERED: FERR325T72 PO (10:53)
[2018-02-09] MEDS ORDERED: AMIT75TA PO (10:53)
[2018-02-09] MEDS ORDERED: LIDO700A39 TD (10:53)
--- NOTE | 2018-02-09 12:09 | DS ---
DATE OF DISCHARGE: 02/09/2018 The patient is a 77-year-old female came in through the Emergency Room. The patient noted increased confusion, fell twice the day of admission bruising her face. She denied any other recent injury. She was pretty much in some form of an encephalopathy where she was basically unresponsive for a while, was started on fluids, reduced some of her medications. The patient made good progress during the rest of her hospitalization. Decreased her amitriptyline and started her on Wellbutrin. Dr. Morgan noted psychiatrist, who evaluated the patient as well showed mild cognitive impairment with small left frontal meningioma. Otherwise, the patient made good progress. She also has chronic anemia of iron deficiency, although she did have a positive Hemoccult stool, which will be evaluated as an outpatient. The patient made good progress during the rest of her hospitalization and she was discharged home. IMPRESSION: Metabolic encephalopathy, possibly drug-induced urinary tract infection, Streptococcus group B, iron deficiency anemia, type 2 diabetes, acute renal failure, abnormal hemoglobin A1c up to 8.7, hypothyroidism, increased her thyroid medicine, B12 was normal. PLAN: We will go ahead and be discharged home to the care of her son and home health to follow as well. MILAN KAPLAN MD DR: JOE/lesia JOB#: [id number] / [id number]
--- NOTE | 2018-02-09 22:17 | PN ---
DATE: 02/08/2018 This is a late entry for 02/08/2018 covers elements not covered in my initial note of 02/08/2018. SUBJECTIVE: I met with the patient in the evening and discussed with nursing staff. The patient was getting her respiratory treatment in the evening, but seemed to remember me from the day before and remembered that I had asked [place] [address], which are the highway she takes on her way from [place] to [facility]. She states her anxiety had made her little forgetful. Her CT head shows small left frontal meningioma. REVIEW OF SYSTEMS: No acute changes. No new changes from the previous CT. MENTAL STATUS EXAM: Oriented to herself and situation. Speech coherent, pleasant, verbal. Abstraction fair, computation impaired, does have some term memory deficits. No active suicidal or homicidal ideation. LABORATORY DATA: Reviewed. IMPRESSION: Unchanged from initial note. PLAN: I have once again advised the patient that she should have her driving evaluated, given some of the confusion related by the son and some of her short-term memory deficits as well. No other change from a psychiatric standpoint. It would benefit her to follow up at the [facility] from a psychiatric standpoint post discharge. MAURO LIVE MD DR: MARCIAL/lesia JOB#: [id number] / [id number]
== END 2018-02-09 11:55 | disposition home health service (06) | DRG 682 ==
LOC: ER 11:00 → 1 SOUTH 16:37
PROVIDERS: ADMIT Family Medicine; ATTEND Family Medicine
DX: N17.9 Acute kidney failure, unspecified (principal); G92 Toxic encephalopathy; E44.0 Moderate protein-calorie malnutrition; E11.22 Type 2 diabetes mellitus with diabetic chronic kidney disease; E86.0 Dehydration; S06.0X9A Concussion with loss of consciousness of unspecified duration, initial encounter; N39.0 Urinary tract infection, site not specified; S00.83XA Contusion of other part of head, initial encounter; R19.5 Other fecal abnormalities; W18.39XA Other fall on same level, initial encounter; E03.9 Hypothyroidism, unspecified; D32.9 Benign neoplasm of meninges, unspecified; F03.90 Unspecified dementia, unspecified severity, without behavioral disturbance, psychotic disturbance, mood disturbance, and anxiety; T50.905A Adverse effect of unspecified drugs, medicaments and biological substances, initial encounter; D53.9 Nutritional anemia, unspecified; B95.1 Streptococcus, group B, as the cause of diseases classified elsewhere; D50.9 Iron deficiency anemia, unspecified; F09 Unspecified mental disorder due to known physiological condition; F41.9 Anxiety disorder, unspecified; N18.9 Chronic kidney disease, unspecified; G89.29 Other chronic pain; Y93.89 Activity, other specified; Y92.89 Other specified places as the place of occurrence of the external cause; Y99.8 Other external cause status; Z68.29 Body mass index [BMI] 29.0-29.9, adult
CPT/HCPCS: 36415; 70450; 71046; 80048; 80053; 80307; 81001; 82274; 82607; 82947; 83036; 83540; 83550; 83735; 83880; 84443; 84484; 85025; 85610; 85730; 87086; 93005; 94640; 96361; 96365; 96366; J1815; J7613; J7626; 97530; 99285-25; G0479; J7030